=== PATIENT | female | born 1965 | race Two or more races ===

== ENCOUNTER 2024-07-23 06:43 | Emergency (ER) | payer OTHER ==
[~2024-07-23] VITALS: Ht 161.3 cm; Wt 88.5 kg
[2024-07-23] MEDS ORDERED: AVAPRO300 MG PO (07:23)
[2024-07-23] MEDS ORDERED: SYNTHROID137 MCG PO (07:23)
[2024-07-23] MEDS ORDERED: HYDROCHLOROTHIA25 MG PO (07:24)
[2024-07-23] MEDS ORDERED: TOPROL XL50 M1 PO (07:24)
[2024-07-23] MEDS ORDERED: KETOROLAC TROMETHAMINE 60 MG VIAL IM STA (08:30)
[2024-07-23 09:17] LABS: HEMATOCRIT 39.2 % (36.0-45.00); MEAN CELL VOLUME 85.4 fL (80.00-100.00); MEAN CORPUSCULAR HEMOGLOBIN 28.3 pg (27.00-32.0); MEAN CORPUSCULAR HGB CONC 33.2 g/dl (32.0-36.0); PLATELET COUNT 196 K/uL (150-450); RED BLOOD COUNT 4.59 M/uL (4.00-6.00); RED CELL DISTRIBUTION WIDTH 14.3 % (11.5-14.5)
[2024-07-23 09:25] LABS: PH,URINE 5.5 (5.0-8.0); URINE APPEARANCE Clear; URINE BILIRRUBIN Negative (NEGATIVE); URINE BLOOD Negative; URINE COLOR Yellow; URINE GLUCOSE Negative (NEGATIVE); URINE KETONE Negative (NEGATIVE); URINE LEUKOCYTE Moderate; URINE NITRATE Negative; URINE PROTEIN Negative (NEGATIVE); URINE UROBILINOGEN 0.2 E.U./dl
[2024-07-23 09:29] LABS: URINE BACTERIA 250.7 uL (0.0-1933); URINE EPITHELIAL CELLS 26.4 uL (0.0-38.8); URINE RBC 9.6 uL (0.0-20.8); URINE WBC 295.2 uL (0.0-23.2)
[2024-07-23 10:02] LABS: CALCIUM 10.7 mg/dL (8.5-10.1); CREATININE SERUM 0.86 mg/dL (0.55-1.02); GFR 67.31; POTASSIUM 3.71 mEq/L (3.5-5.1)
== END 2024-07-23 10:56 | disposition home or self-care (01) ==
LOC: ER 06:45
PROVIDERS: General Practice
DX: N39.0 Urinary tract infection, site not specified (principal)